=== PATIENT | male | born 1990 | race Caucasian/White ===

== ENCOUNTER 2022-02-14 18:51 | Emergency (ER) | payer OTHER, SELFPAY ==
--- NOTE | ~2022-02-14 | CT_ITS ---
EXAMINATION: CT abdomen pelvis wo con DATE: 02/14/2022 19:22 INDICATION: Abdominal pain TECHNIQUE: Computed tomography (CT) of the abdomen and pelvis was performed without intravenous contr ast. The dose-length product was 189.60 mGy-cm. Automated exposure control and iterative reconstructi on technique were employed. COMPARISON: None. FINDINGS: Calcified granuloma right lower lobe. Otherwise, lung bases are unremarkable. Heart size no rmal. No significant pleural or pericardial effusion. No significant vascular abnormality. The liver, spleen, pancreas, adrenal glands and kidneys are unremarkable. Gallbladder is present. Nonobstructiv e bowel gas pattern. No free air or free fluid. The appendix is not positively visualized. There is no pericecal inflammatory change to suggest appendicitis. No significant bone or joint abnormality. IMPRESSION: 1. No acute abdominal abnormality. Reviewed, dictated and finalized at location A. [employer]
[2022-02-14 18:51] VITALS: BP 122/74; PULSE 83; RESP 20; TEMP 36.4; O2SAT 100
[2022-02-14 19:14] LABS: Basophils Absolute Auto 0.08 K/mm3 (0.00-0.10); Basophils Percent Auto 0.7 % (0.0-1.0); Eosinophils Absolute Auto 0.19 K/mm3 (0.02-0.50); Eosinophils Percent Auto 1.7 % (1.0-6.0); Hematocrit 44.9 % (40.0-54.0); Hemoglobin 15.2 g/dL (14.0-18.0); Immature Granulocyte Absolute 0.05 K/mm3 (0.00-0.00); Immature Granulocyte Percent A 0.4 % (0.0-0.0); Lymphocytes Absolute Auto 2.12 K/mm3 (1.10-4.50); Lymphocytes Percent Auto 18.5 % (18.0-42.0); Mean Corpuscular HGB Conc 33.9 g/dL (32.0-36.0); Mean Corpuscular Hemoglobin 32.8 pg (27.0-31.0); Mean Corpuscular Volume 96.8 fL (78.0-102.0); Mean Platelet Volume 10.2 fl (8.7-11.0); Monocytes Absolute Auto 0.72 K/mm3 (0.10-0.90); Monocytes Percent Auto 6.3 % (2.0-11.0); Neutrophils Absolute Auto 8.3 K/mm3 (1.7-7.2); Neutrophils Percent Auto 72.4 % (50.0-70.0); Platelet Count Result 236 K/mm3 (150-420); Red Blood Count 4.64 M/mm3 (4.70-6.10); Red Cell Distribution Width 12.1 % (11.6-14.4); White Blood Count 11.5 K/mm3 (4.8-10.8)
[2022-02-14 19:30] LABS: Alanine Aminotransferase 31 U/L (16-63); Albumin Level 4.4 g/dL (3.4-5.0); Alkaline Phosphatase 118 U/L (46-116); Anion Gap 10 mmol/L (8-16); Aspartate Amino Transferase < 10 U/L (15-37); Bilirubin,Total 0.6 mg/dL (0.00-1.00); Blood Urea Nitrogen 11 mg/dL (7-18); Carbon Dioxide 28 mmol/L (21-32); Chloride 104 mmol/L (98-108); Estimated CRCL calculation 92 ml/min; Estimated Glomerular Filt Rate > 60; Glucose 121 mg/dL (70-99); Osmolality Calculated 294 mOsm/kg (285-295); Sodium 142 mmol/L (136-145); Total Protein 7.2 g/dL (6.4-8.2)
--- NOTE | 2022-02-14 19:31 | ED.ABDPAIN ---
HPI - Abdominal Pain General Chief Complaint: Abdominal Pain Stated Complaint: pain on left side of stomach Time Seen by Provider: 02/14/22 18:53 Source: patient Mode of arrival: ambulatory Limitations: no limitations History of Present Illness HPI narrative: This is a 31-year-old gentleman that has some right upper and epigastric discomfort over the last couple weeks and has been off and on rates his pain about a 4/10 with some currently no nausea no chest pain no shortness of breath no dysuria no flank pain no hematuria no fever or chills. MD elicited complaint: abdominal pain Pertinent past history: none Onset (ago): week(s) Pain Consistency: intermittent Severity: mild Pain scale (0-10): 4 Related Data Allergies Allergy/AdvReac Type Severity Reaction Status Date / Time No Known Allergies Allergy Verified 02/14/22 19:29 Review of Systems Review of Systems: All systems reviewed & are unremarkable except as noted in HPI and below PMFSH Past Medical History Medical History Patient denies medical problems Exam Const: General: healthy appearing and no acute distress Nutritional Appearance: well nourished Limitations: no limitations HENMT: Head: normal to inspection Ears: external ears normal Face/Nose/Sinus: Normal external nose present Face and sinus: normal facial exam Eyes: Conjunctivae: conjunctivae normal EOM: EOMs intact bilaterally Neck: Neck: normal visual inspection Chest: Chest palpation & inspection: normal inspection of the chest Resp: Effort & Inspection: normal respiratory effort Auscultation: clear to auscultation bilaterally Cardio: Rate: regular rate Rhythm: regular rhythm GI: GI Palp: Yes Soft to palpation Auscultation: normal bowel sounds Urinary Catheter: Urinary Catheter: patent and draining Skin: General skin exam: normal color Rashes: no rashes Wounds: no wounds Neuro: General: patient oriented x3 and moves all extremities Extrem: General: normal to inspection Psych: Mental Status: mental status grossly normal Affect: normal affect Course Course Emergency Course: Patient declined any pain medication will start IV fluids, CT scan reviewed which shows no acute abnormalities will obtain and and reviewed UA along with a CBC and CMP. Vital Signs Vital signs: Vital Signs Temperature 36.4 C L 02/14/22 18:51 Pulse Rate 83 02/14/22 18:51 Respiratory Rate 20 02/14/22 18:51 Blood Pressure 122/74 02/14/22 18:51 Pulse Oximetry 100 02/14/22 18:51 Oxygen Delivery Room Air 02/14/22 18:51 Temperature 36.6 C 02/14/22 20:06 Pulse Rate 80 02/14/22 20:06 Respiratory Rate 18 02/14/22 20:06 Blood Pressure 120/72 02/14/22 20:06 Pulse Oximetry 100 02/14/22 20:06 Oxygen Delivery Room Air 02/14/22 20:06 MDM - Abdominal Pain Lab Data 02/14/22 19:11 02/14/22 19:11 Labs: Lab Results 02/14/22 02/14/22 02/14/22 Range/Units 19:11 19:11 19:48 WBC 11.5 H (4.8-10.8) K/mm3 RBC 4.64 L (4.70-6.10) M/mm3 Hgb 15.2 (14.0-18.0) g/dL Hct 44.9 (40.0-54.0) % MCV 96.8 (78.0-102.0) fL MCH 32.8 H (27.0-31.0) pg MCHC 33.9 (32.0-36.0) g/dL RDW 12.1 (11.6-14.4) % Plt Count 236 (150-420) K/mm3 MPV 10.2 (8.7-11.0) fl Immature Gran % (Auto) 0.4 H (0.0-0.0) % Neut % (Auto) 72.4 H (50.0-70.0) % Lymph % (Auto) 18.5 (18.0-42.0) % Bowie % (Auto) 6.3 (2.0-11.0) % Eos % (Auto) 1.7 (1.0-6.0) % Baso % (Auto) 0.7 (0.0-1.0) % Lymph # (Auto) 2.12 (1.10-4.50) K/mm3 Bowie # (Auto) 0.72 (0.10-0.90) K/mm3 Eos # (Auto) 0.19 (0.02-0.50) K/mm3 Baso # (Auto) 0.08 (0.00-0.10) K/mm3 Abs Immat Gran (auto) 0.05 H (0.00-0.00) K/mm3 Absolute Neuts (auto) 8.3 H (1.7-7.2) K/mm3 Absolute Nucleated RBC 0.00 (0.00-0.00) K/mm3 Nucleated RBC % 0.0 (0-0.0) % Sodium 142 (136-14
[2022-02-14 19:50] LABS: Add Urine Microscopic? NO; Appearance Urine Clear (Clear); Bilirubin Urine Negative (Negative); Blood Urine Negative (Negative); Color Urine Yellow (Yellow); Glucose Urine UA Negative (Negative); Ketones Urine Negative (Negative); Leukocyte Esterase Ur Negative LEU/UL (Negative); Nitrate Urine Negative (Negative); Protein Urine Negative (Negative); Specific Grav Ur >= 1.030 (1.010-1.020); Urobilinogen Urine 0.2 mg/dL (0.2-1.0)
[2022-02-14] MEDS: PANTOPRAZOLE 40 MG TABLET PO (20:00)
[2022-02-14 20:06] VITALS: BP 120/72; PULSE 80; RESP 18; TEMP 36.6; O2SAT 100
== END 2022-02-14 20:12 | disposition home or self-care (01) ==
PROVIDERS: Emergency Provider Emergency Medicine
DX: K21.9 Gastro-esophageal reflux disease without esophagitis (principal)
CPT/HCPCS: 36415; 74176; 80053; 81003; 85025; 99284; A9270